=== PATIENT | male | born 1950 | race African-American/Black ===

== ENCOUNTER 2016-07-26 14:37 | Emergency (ER) | payer MEDICARE, MEDICAID ==
[~2016-07-26] VITALS: Ht 172.7 cm; Wt 76.0 kg
[~2016-07-26 14:37] MED LIST: DILANTIN; FLUDROCORTISONE; HCTZ; KEPPRA
[2016-07-26 14:52] VITALS: BP 125/78
== END 2016-07-26 18:10 | disposition home or self-care (01) ==
LOC: ER 17:14
DX: L25.9 Unspecified contact dermatitis, unspecified cause (principal); R56.9 Unspecified convulsions; Z87.891 Personal history of nicotine dependence
CPT/HCPCS: 99283

== ENCOUNTER 2019-12-08 12:33 | Inpatient (IN) | payer MEDICARE, OTHER ==
[~2019-12-08] VITALS: Ht 172.7 cm; Wt 76.2 kg
[2019-12-08] MEDS ORDERED: ACETAMINOPHEN 325MG TABLET PO ONE (13:30)
[2019-12-08 13:47] LABS: BASOPHILS % 0.9 % (0.0-2.0); EOSINOPHILS % 3.7 % (0.0-5.0); HEMATOCRIT. 33.7 % (42.0-52.0); LYMPHOCYTES % 33.1 % (20.0-50.0); MEAN CORPUSCULAR HEMOGLOBIN 28.2 pg (28.0-32.0); MEAN CORPUSCULAR VOLUME 86.3 fL (80.0-94.0); MEAN PLATELET VOLUME 8.4 fl (7.4-10.4); MONOCYTES % 12.6 % (2.0-8.0); NEUTROPHILS % 49.7 % (40.0-76.0); PLATELET 179 x1000/uL (130-400); RED BLOOD CELL COUNT 3.91 mill/uL (4.7-6.1); RED CELL DISTRIBUTION WIDTH 15.1 % (11.6-14.6)
[2019-12-08 13:53] LABS: CHLORIDE 112 mEq/L (98-107)
[2019-12-08 14:09] LABS: PARTIAL THROMBOPLASTIN TIME 30.8 sec (23.4-31.0); PROTHROMBIN TIME 10.9 sec (9.6-11.0)
[2019-12-08] MEDS ORDERED: CEFTRIAXONE 1 G PREMIX 50 ML IV ONE (14:45)
[2019-12-08] MEDS ORDERED: AZITHROMYCIN 500 MG in DEXT 5% WATER 250 ML IV SCH (14:45)
[2019-12-08] MEDS ORDERED: ASPIRIN 81MG TABLET PO ONE (15:45)
[2019-12-08] MEDS ORDERED: POTASSIUM CHLORIDE 20MEQ TABLET SR PO ONE (15:45)
[2019-12-08] MEDS ORDERED: ONDANSETRON HCL 4MG/2ML INJ IV PRN (18:30)
[2019-12-08] MEDS ORDERED: ACETAMINOPHEN 325MG TABLET PO PRN (18:30)
[2019-12-08] MEDS ORDERED: TRAZODONE HCL 50MG TABLET PO PRN (18:30)
[2019-12-08 20:53] VITALS: BP 121/72
[2019-12-08] MEDS: FUROSEMIDE 40MG/4ML VIAL IVP SCH (21:28)
[2019-12-08] MEDS: HEPARIN 5000 UNITS/ML VIAL SUBCUT SCH (21:29)
[2019-12-08 22:11] VITALS: BP 146/84
[2019-12-08] MEDS ORDERED: PHEN100C4 PO (23:39)
[2019-12-08] MEDS ORDERED: KEPP250 PO (23:41)
[2019-12-09 00:05] VITALS: BP 107/65
[2019-12-09 04:00] VITALS: BP 96/55
[2019-12-09] MEDS: FUROSEMIDE 40MG/4ML VIAL IVP SCH ×2 (06:08→16:40)
[2019-12-09] MEDS: HEPARIN 5000 UNITS/ML VIAL SUBCUT SCH ×2 (08:40→21:32)
[2019-12-09] MEDS: LOSARTAN POTASSIUM 25 MG TABLET PO SCH (09:00)
[2019-12-09 11:37] LABS: BASOPHILS % 1.1 % (0.0-2.0); EOSINOPHILS % 4.2 % (0.0-5.0); HEMATOCRIT. 39.8 % (42.0-52.0); MEAN CORPUSCULAR VOLUME 86.8 fL (80.0-94.0); MEAN PLATELET VOLUME 8.7 fl (7.4-10.4); MONOCYTES % 11.5 % (2.0-8.0); NEUTROPHILS % 44.2 % (40.0-76.0); PLATELET 200 x1000/uL (130-400); RED BLOOD CELL COUNT 4.58 mill/uL (4.7-6.1); RED CELL DISTRIBUTION WIDTH 14.9 % (11.6-14.6)
[2019-12-09 11:45] LABS: HEMOGLOBIN. 12.8 g/dL (14.0-18.0)
[2019-12-09 11:50] LABS: CHLORIDE 104 mEq/L (98-107)
[2019-12-09 12:00] VITALS: BP 120/63
[2019-12-09] MEDS ORDERED: CEFTRIAXONE 1,000 MG in DEXTROSE 5% WATER 50 ML IV SCH ×2 (15:00→16:00)
[2019-12-09] MEDS ORDERED: AZITHROMYCIN 500 MG in DEXT 5% WATER 250 ML IV SCH (16:00)
[2019-12-09] MEDS: CEFTRIAXONE 1,000 MG in DEXTROSE 5% WATER 50 ML IV SCH (16:40)
[2019-12-09] MEDS: AZITHROMYCIN 500 MG in DEXT 5% WATER 250 ML IV SCH (17:22)
[2019-12-09 20:00] VITALS: BP 107/61
[2019-12-10] VITALS: BP 97/63
[2019-12-10] MEDS: FUROSEMIDE 40MG/4ML VIAL IVP SCH (08:38)
[2019-12-10] MEDS: HEPARIN 5000 UNITS/ML VIAL SUBCUT SCH ×2 (08:38→20:38)
[2019-12-10] MEDS: LOSARTAN POTASSIUM 25 MG TABLET PO SCH (08:39)
[2019-12-10] MEDS ORDERED: METOLAZONE 2.5MG TABLET PO NR (12:00)
[2019-12-10] MEDS: RISPERIDONE 1MG TABLET PO SCH (13:49)
[2019-12-10 16:00] VITALS: BP 77/39
[2019-12-10] MEDS: CEFTRIAXONE 1,000 MG in DEXTROSE 5% WATER 50 ML IV SCH (16:39)
[2019-12-10 17:00] VITALS: BP 86/46
[2019-12-10] MEDS: FUROSEMIDE 100MG/10ML VIAL IVP SCH (17:00)
[2019-12-10] MEDS: AZITHROMYCIN 500 MG in DEXT 5% WATER 250 ML IV SCH (17:50)
[2019-12-10 20:00] VITALS: BP 97/63
[2019-12-11] VITALS: BP 87/46
[2019-12-11 04:00] VITALS: BP 97/54
[2019-12-11] MEDS: FUROSEMIDE 100MG/10ML VIAL IVP SCH (07:15)
[2019-12-11 08:00] VITALS: BP 93/61
[2019-12-11] MEDS: RISPERIDONE 1MG TABLET PO SCH (08:33)
[2019-12-11] MEDS: HEPARIN 5000 UNITS/ML VIAL SUBCUT SCH ×3 (08:33→22:25)
[2019-12-11] MEDS: LOSARTAN POTASSIUM 25 MG TABLET PO SCH (08:33)
[2019-12-11 08:34] LABS: BASOPHILS % 0.9 % (0.0-2.0); EOSINOPHILS % 3.5 % (0.0-5.0); HEMATOCRIT. 39.7 % (42.0-52.0); HEMOGLOBIN. 13.1 g/dL (14.0-18.0); LYMPHOCYTES % 42.6 % (20.0-50.0); MEAN CORPUSCULAR HEMOGLOBIN 28.5 pg (28.0-32.0); MEAN CORPUSCULAR VOLUME 86.4 fL (80.0-94.0); MEAN PLATELET VOLUME 8.3 fl (7.4-10.4); MONOCYTES % 12.4 % (2.0-8.0); NEUTROPHILS % 40.6 % (40.0-76.0); PLATELET 184 x1000/uL (130-400); RED BLOOD CELL COUNT 4.59 mill/uL (4.7-6.1); RED CELL DISTRIBUTION WIDTH 14.6 % (11.6-14.6)
[2019-12-11 08:47] LABS: CHLORIDE 100 mEq/L (98-107)
[2019-12-11 12:00] VITALS: BP 96/62
[2019-12-11] MEDS: PHENYTOIN SODIUM EXTENDED 100MG CAPSULE PO SCH (12:34)
[2019-12-11] MEDS: LEVETIRACETAM 500MG TABLET PO SCH ×2 (12:35→17:46)
[2019-12-11 16:00] VITALS: BP 126/68
[2019-12-11] MEDS: CEFTRIAXONE 1,000 MG in DEXTROSE 5% WATER 50 ML IV SCH (17:46)
[2019-12-11] MEDS: AZITHROMYCIN 500 MG in DEXT 5% WATER 250 ML IV SCH (18:24)
[2019-12-11 20:00] VITALS: BP 118/66
[2019-12-11] MEDS: FUROSEMIDE 40MG TABLET PO SCH ×2 (21:00→22:25)
[2019-12-12] VITALS: BP 88/55
[2019-12-12 04:00] VITALS: BP 92/57
[2019-12-12 08:00] VITALS: BP 99/66
[2019-12-12] MEDS: FUROSEMIDE 40MG TABLET PO SCH ×3 (08:37→21:15)
[2019-12-12] MEDS: PHENYTOIN SODIUM EXTENDED 100MG CAPSULE PO SCH (08:37)
[2019-12-12] MEDS: HEPARIN 5000 UNITS/ML VIAL SUBCUT SCH ×4 (08:37→21:15)
[2019-12-12] MEDS: LEVETIRACETAM 500MG TABLET PO SCH ×2 (08:37→17:06)
[2019-12-12] MEDS: RISPERIDONE 1MG TABLET PO SCH (08:37)
[2019-12-12 12:00] VITALS: BP 93/55
[2019-12-12 16:00] VITALS: BP 100/65
[2019-12-12] MEDS: CEFTRIAXONE 1,000 MG in DEXTROSE 5% WATER 50 ML IV SCH (17:06)
[2019-12-12] MEDS: AZITHROMYCIN 500 MG in DEXT 5% WATER 250 ML IV SCH (17:44)
[2019-12-12 20:00] VITALS: BP 105/58
[2019-12-13] VITALS: BP 92/58
[2019-12-13 04:00] VITALS: BP 96/52
[2019-12-13 08:00] VITALS: BP 118/68
[2019-12-13] MEDS: PHENYTOIN SODIUM EXTENDED 100MG CAPSULE PO SCH (08:58)
[2019-12-13] MEDS: LEVETIRACETAM 500MG TABLET PO SCH ×2 (08:58→17:12)
[2019-12-13] MEDS: HEPARIN 5000 UNITS/ML VIAL SUBCUT SCH ×2 (08:59→20:44)
[2019-12-13] MEDS: RISPERIDONE 1MG TABLET PO SCH (08:59)
[2019-12-13] MEDS: FUROSEMIDE 40MG TABLET PO SCH ×2 (09:00→20:44)
[2019-12-13 12:00] VITALS: BP 97/64
[2019-12-13 16:00] VITALS: BP 120/60
[2019-12-13 20:00] VITALS: BP 106/56
[2019-12-14] VITALS (7 sets, daily range): BP systolic 85–147; BP diastolic 53–88
[2019-12-14] MEDS: PHENYTOIN SODIUM EXTENDED 100MG CAPSULE PO SCH (08:32)
[2019-12-14] MEDS: LEVETIRACETAM 500MG TABLET PO SCH ×2 (08:32→17:51)
[2019-12-14] MEDS: FUROSEMIDE 40MG TABLET PO SCH (08:32)
[2019-12-14] MEDS: HEPARIN 5000 UNITS/ML VIAL SUBCUT SCH (08:37)
[2019-12-14] MEDS: RISPERIDONE 1MG TABLET PO SCH (08:37)
[2019-12-14] MEDS ORDERED: FURO40TA5 PO (12:36)
[2019-12-14] MEDS ORDERED: RISP1 PO (12:36)
[2019-12-14] MEDS ORDERED: FURO-151 MT (12:47)
== END 2019-12-14 20:15 | DRG 292 ==
LOC: ER 12:33 → EDBEDREQ 16:02 → ENRESERV 17:10 → 7WST 18:30 → 6WST 12-09 10:45
PROVIDERS: ADMIT Internal Medicine; ATTEND Internal Medicine
DX: I11.0 Hypertensive heart disease with heart failure (principal); R65.10 Systemic inflammatory response syndrome (SIRS) of non-infectious origin without acute organ dysfunction; J98.11 Atelectasis; G40.909 Epilepsy, unspecified, not intractable, without status epilepticus; D64.9 Anemia, unspecified; I87.2 Venous insufficiency (chronic) (peripheral); I50.43 Acute on chronic combined systolic (congestive) and diastolic (congestive) heart failure; D72.819 Decreased white blood cell count, unspecified; I95.9 Hypotension, unspecified; Z03.818 Encounter for observation for suspected exposure to other biological agents ruled out; Z59.0 Homelessness; Z79.899 Other long term (current) drug therapy
CPT/HCPCS: 36415; 71045; 80048; 80053; 80061; 83605; 83735; 83880; 84484; 85025; 87635; 93005; 93306; 93970; 97116; 97162; 99285; J0456; J0696; J1644; J1940; J7060

== ENCOUNTER 2020-03-20 09:52 | Emergency (ER) | payer MEDICARE, OTHER ==
[~2020-03-20] VITALS: Ht 182.9 cm; Wt 91.0 kg
[~2020-03-20 09:52] MED LIST changes: -DILANTIN; -FLUDROCORTISONE; +FURO-151 MT; -HCTZ; +KEPP250 PO; -KEPPRA; +PHEN100C4 PO; +RISP1 PO
[2020-03-20 10:03] VITALS: BP 120/72
[2020-03-20] MEDS ORDERED: PREDNISONE 20MG TABLET PO ONE (10:30)
== END 2020-03-20 10:58 | disposition home or self-care (01) ==
LOC: ER 10:11
DX: L50.9 Urticaria, unspecified (principal); Z79.899 Other long term (current) drug therapy
CPT/HCPCS: 99283; J7512